=== PATIENT | male | born 1980 | race American Indian/Alaskan Native ===

== ENCOUNTER 2017-05-15 01:08 | Emergency (ER) | payer OTHER ==
[2017-05-15 01:08] VITALS: BMI 31.5
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
[2017-05-15 05:10] VITALS: BP 132/68; PULSE 76; RESP 18; TEMP 98.7; O2SAT 99
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
--- NOTE | 2017-05-15 10:54 | RAD ---
PROCEDURE: Cervical Spine Radiographs. HISTORY: Pain. COMPARISON: None available. FINDINGS: Cervical spine is not well-visualized beyond C6 on the lateral view. BONES: Straightening of the normal cervical lordosis may be related to muscle spasm or positioning. No listhesis. No acute displaced fracture identified. The dens tip is obscured, not adequately visualized. DISC SPACES: Unremarkable. SOFT TISSUES: Unremarkable. No prevertebral soft tissue swelling. OTHER FINDINGS: None. IMPRESSION: Limited study as above. Straightening of the normal cervical lordosis may be related to muscle spasm or positioning.
== END 2017-05-15 05:11 | disposition home or self-care (01) ==
LOC: ED 01:08
DX: S16.1XXA Strain of muscle, fascia and tendon at neck level, initial encounter (principal); S39.012A Strain of muscle, fascia and tendon of lower back, initial encounter; V47.5XXA Car driver injured in collision with fixed or stationary object in traffic accident, initial encounter; Y92.410 Unspecified street and highway as the place of occurrence of the external cause